=== PATIENT | female | born 1945 | race African-American/Black ===

== ENCOUNTER → 2018-07-03 | Outpatient (CLI) | payer MEDICARE, OTHER ==
--- NOTE | 2018-07-03 12:11 | KCIC ---
MRI right shoulder without contrast dated 07/03/2018 Indication: Shoulder pain limited range of motion .. Comparison: No comparison is available. Technique: Routine multiplanar multisequence imaging performed. . Findings: Study is limited due to motion artifact. There is a large full-thickness tear of the rotator cuff involving the supraspinatus and infraspinatus tendons. The cuff defect measures 2.9 cm transverse and 2.6 in meters in AP dimensions. The torn portion of the cuff is retracted to the level of the joint. There are a few inferior infraspinatus fibers that remain intact. There also may be a few anterior supraspinatus fibers that remain intact. There is thickening and abnormal signal of the subscapularis with probable full-thickness tear of the upper margin. Moderate hypertrophic change at the AC joint. Mild undersurface spurring. Acromion type I morphology. No significant subacromial subdeltoid bursal fluid collection. Long head biceps tendon is not identified and may be ruptured at the biceps anchor or subluxed medially into the joint. There is moderate to severe hypertrophic change of the glenohumeral joint with thinning and surface irregularity of the articular cartilage throughout. Probable full-thickness cartilage loss of the central glenoid. The glenoid labrum is blunted morphology consistent with chronic tearing. Small glenohumeral joint effusion. No definite loose body. Suprascapular and spinoglenoid notches are clear. No significant muscle edema. There is mild atrophy and volume loss of the rotator cuff musculature. IMPRESSION: 1. Rotator cuff tendinopathy with large full-thickness tear of the rotator cuff. The torn portion of the cuff is retracted to the level the joint. 2. Nonvisualization of the long head biceps tendon which could be ruptured at the biceps anchor or subluxed medially into the joint. 3. Moderate AC joint arthropathy. 4. 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 There is extensive degenerative tearing of the glenoid labrum. Electronically signed by: Arnold Amos MD (07/03/2018 12:07 PM) [email or web address]
--- NOTE | 2018-07-03 12:38 | KCIC ---
MRI Lumbar Spine without contrast History: Low back pain, radiculopathy, weakness Technique: Multiplanar, multi sequential noncontrast MR imaging was performed of the lumbar spine. Contrast: None Comparison: None Findings: Most inferior fully formed intervertebral disc space is considered L5-S1 for this report. Lumbar vertebral body stature is maintained. There is minimal grade 1 anterior spondylolisthesis L4-5 and L5-S1. Conus terminates at the superior aspect of L1. There is increased T1 and T2 signal as well as STIR signal in the L5-S1 intervertebral disc space, probably a component of calcification in combination with mild fluid/edema. There is no edema of the adjacent endplates. There is some edema of the right L4 pedicle and facet articulation, also minimally of the left L5 facet articulation. There is mild to moderate narrowing of the L5-S1 intervertebral disc space greater anteriorly, mild degenerative disc disease L2-3 through L4-5. There is nonspecific heterogeneity of the visualized uterus, barely included. T12-L1: This level was not included on the axial images. There is buckling of the ligamentum flavum on the right as well as facet degenerative change, contributes to mild posterior narrowing of the right neural foramen. L1-L2: Spinal canal and neural foramina are adequate. There is mild facet hypertrophic change. L2-L3: There is mild buckling of the ligamentum flavum and mild to moderate facet degenerative change. There is disc osteophyte complex and bulge. There is jeen-bj-wwtbqida narrowing of the spinal canal, lateral recess stenosis bilaterally. There is mild to moderate left and mild right neural foramina compromise. L3-L4: There is mild to moderate buckling of the ligamentum flavum and facet degenerative change. There is fluid in the facet articulations bilaterally. There is mild narrowing of the right lateral recess. There is mild to moderate right and mild left neural foramina compromise, disc osteophyte complex and bulge near the undersurface of the exiting right L3 nerve root without significant impingement. L4-L5: There is mild buckling of the ligamentum flavum and facet degenerative change. There is mild narrowing of the far left lateral recess. There is uyzh-yz-mgkcoows narrowing of the left neural foramen, disc osteophyte complex near undersurface exiting left L4 nerve root greater in the distal neural foramen and proximal extraforaminal region without displacement. Right neural foramen is overall adequate. L5-S1: Spinal canal is adequate. Neural foramina are adequate. Disc osteophyte complex is near the extraforaminal left L5 nerve root. Impression: 1. Most inferior fully formed intervertebral disc space is considered L5-S1. There is grade 1 anterior spondylolisthesis at L4-5 and L5-S1, multilevel facet degenerative change. Edema of the right L4 pedicle and facet articulation and also of the left L5 facet articulation is more likely reactive/degenerative in etiology . 2. There is yjxm-of-qelqzwdj spinal stenosis L2-3, mild right lateral recess stenosis L3-4 and mild left lateral recess stenosis at L4-5. 3. There is mild to moderate neural foramina compromise as stated greatest on the left at L4-5 and L2-3 and on the right at L3-4. 4. There is mild to moderate degenerative disc disease L5-S1 at which is likely component of interbody calcification and mild nonspecific edema, mild degenerative disc disease at more superior levels. 5. There is nonspecific heterogeneity of the visualized uterus, barely included. Electronically signed by: Nasim Chappell MD (07/03/2018 12:35 PM) [id number]
== END | disposition home or self-care (01) ==
LOC: KCIC MRI 09:59
PROVIDERS: ATTEND Physician Assistant
DX: M75.121 Complete rotator cuff tear or rupture of right shoulder, not specified as traumatic (principal); M51.16 Intervertebral disc disorders with radiculopathy, lumbar region; M19.011 Primary osteoarthritis, right shoulder; M94.211 Chondromalacia, right shoulder; M48.061 Spinal stenosis, lumbar region without neurogenic claudication; M43.16 Spondylolisthesis, lumbar region; M85.88 Other specified disorders of bone density and structure, other site
CPT/HCPCS: 72148; 73221

== ENCOUNTER → 2018-07-23 | Outpatient (CLI) | payer MEDICARE, OTHER ==
--- NOTE | 2018-07-23 14:05 | KCIC ---
MRI left shoulder without contrast dated 07/23/2018 12:30 PM Indication: Left shoulder pain no known injury. Pain. Comparison: No comparison is available. Technique: Routine multiplanar multisequence imaging performed. . Findings: Study is limited due to motion artifact. There is increased signal throughout the supraspinatus and infraspinous portions of the repaired cuff. There is a large full-thickness tear involving the supraspinatus and infraspinatus footplate measuring approximately 2.8 cm AP dimension and 2.8 cm transverse. Torn portion of the cuff is retracted to about the 12:00 position. There is intermediate T2 signal throughout the subscapularis which is otherwise intact. Mild hypertrophic change of the AC joint. Mild undersurface spurring of the acromium. Acromion type II morphology. Small amount of subacromial/subdeltoid bursal fluid. Increased signal within the substance of the long head biceps tendon proximally. Extra articular portion courses within the bicipital groove. Biceps anchor intact. Mild hypertrophic change of the glenohumeral joint with small marginal osteophytes. Thinning and surface irregularity of the articular cartilage. No full-thickness cartilage defect. There is blunted morphology of the posterior labrum. Suprascapular and spinoglenoid notches are clear. No significant muscle edema or muscle atrophy. IMPRESSION: 1. Rotator cuff tendinopathy with large full-thickness tear involving the supraspinatus-infraspinatus footplate. The torn portion of the cuff is retracted to the 12:00 position. 2. Moderate AC joint arthropathy with undersurface spurring. Small subacromial/subdeltoid bursal effusion. 3. Mild biceps tendinosis. 4. Mild degenerative arthrosis and chondral malacia the glenohumeral joint. There is degenerative tearing of the posterior labrum. Electronically signed by: Arnold Amos MD (07/23/2018 2:02 PM) [email or web address]
== END | disposition home or self-care (01) ==
LOC: KCIC MRI 11:51
PROVIDERS: ATTEND Physician Assistant
DX: S43.492A Other sprain of left shoulder joint, initial encounter (principal); M19.012 Primary osteoarthritis, left shoulder; X58.XXXA Exposure to other specified factors, initial encounter; Y93.89 Activity, other specified; Y92.89 Other specified places as the place of occurrence of the external cause; Y99.8 Other external cause status
CPT/HCPCS: 73221

== ENCOUNTER 2019-08-19 10:16 | Emergency (ER) | payer MEDICARE, OTHER ==
[~2019-08-19] VITALS: Ht 165.1 cm; Wt 116.1 kg
[2019-08-19 10:50] VITALS: BP 184/78
[2019-08-19] MEDS ORDERED: ORPHENADRINE CITRATE 60 MG/2 ML VIAL. IM ONE (11:00)
[2019-08-19] MEDS ORDERED: DEXAMETHASONE SOD PHOS 20 MG/5 ML VIAL. PO ONE (11:00)
[2019-08-19] MEDS ORDERED: CYCL10TA2 PO (12:00)
--- NOTE | 2019-08-19 12:00 | PHYS DOC ---
Past Medical History Past Medical History: Arthritis, Diabetes-Type II, Hypertension, Renal Disease Additional Past Medical Histor: GOUT, DISC NARROWING Past Surgical History: No Surgical History Alcohol Use: None Drug Use: None Adult General Chief Complaint Chief Complaint: [facility] PA[facility] HPI Patient is a 74 year old AA female who presents to the emergency department with complaints of left low back pain that shoots into her left buttock and sometimes goes over to the right low back for the last 2 days. She denies any history of any trauma or recent fall. Patient states that she has some narrowing of her spine but she is not sure what the diagnosis is. She denies any numbness, tingling, or weakness of her lower extremities. She also denies any loss of bowel or bladder control, saddle anesthesia, increased urination, dysuria, hematuria, or difficulty voiding. Patient currently rates her pain a 10 out of 10 on pain scale, there are no alleviating factors, the pain is increased with movement. She denies any fever, chest pain, palpitations, recent cough, nausea, vomiting, diarrhea, abdominal pain, or chest pain. All other ROS is neg unless otherwise noted in HPI. Review of Systems Review of Systems See Above Current Medications Current Medications Current Medications Medications (Trade) Dose Ordered Sig/Benjamín Start Time Stop Time Status Last Admin Dose Admin Dexamethasone Sodium Phosphate (Decadron) 10 mg 1X ONCE 08/19/19 11:00 08/19/19 11:16 DC 08/19/19 11:47 10 MG Orphenadrine Citrate (Norflex) 60 mg 1X ONCE 08/19/19 11:00 08/19/19 11:16 DC 08/19/19 11:47 60 MG Allergies Allergies Allergies Coded Allergies Type Severity Reaction Last Updated Verified Sulfa (Sulfonamide Antibiotics) Allergy Intermediate 08/19/19 Yes Physical Exam Physical Exam See Above Constitutional: Well developed, well nourished, no acute distress, non-toxic appearance. [] HENT: Normocephalic, atraumatic, bilateral external ears normal, oropharynx moist, no oral exudates, nose normal. [] Eyes: PERRLA, EOMI, conjunctiva normal, no discharge. [] Neck: Normal range of motion, no tenderness, no stridor. [] Cardiovascular:Heart rate regular rhythm, 4/5 murmur noted S1 ans S2 Lungs & Thorax: Bilateral breath sounds clear to auscultation, respirations even and unlabored [] Skin: Warm, dry, no erythema, no rash. [] Back: No bony tenderness, no CVA tenderness; left lumbar paraspinal TTP, increased pain with straight leg lift of left leg Extremities: No cyanosis, ROM intact Neurologic: Alert and oriented X 3, no focal deficits noted. [] Psychologic: Affect normal, judgement normal, mood normal. [] Current Patient Data Vital Signs Vital Signs Date Time Temp Pulse Resp B/P (MAP) Pulse Ox O2 Delivery O2 Flow Rate FiO2 08/19/19 10:50 98.0 62 20 184/78 (113) 95 Room Air 98.0 EKG EKG [] Radiology/Procedures Radiology/Procedures [] Course & Med Decision Making Course & Med Decision Making Pertinent Labs and Imaging studies reviewed. (See chart for details) Pt is a 74-year-old female who presented to the emergency room with complaints of low back pain for the last 2 days. Patient states that the pain is in the left low back and radiates to her left buttock and also sometimes to the right low back with movement. She rated the pain is 10 out of 10 on pain scale, she denied any recent injury or fall. Patient did report a history of narrowing of her spine but was unsure of what the actual diagnosis was. She was given 60 mg of Norflex and 10 mg of Decadron in the emergency department. Prescription written for Flexeril, activity as tolerated. Patient instructed to follow-up with her primary care doctor in the next 1-2 days. Return to the ER symptoms w orsen. Patient verbalized an understanding of home care, medications, follow-up, and return to ED instructions and was in agreement with the plan of care. [] Dragon Disclaimer Dragon Disclaimer This electronic medical record was generated, in whole or in part, using a voice recognition dictation system. Departure Departure Impression: Primary Impression: Low back pain Disposition: 01 HOME, SELF-CARE Condition: STABLE Referrals: SHIRLEY KAMARA MD (PCP) Patient Instructions: Back Pain, Adult, [id number]-[id number], Sciatica, Xebj-li-[id number] Additional Instructions: Fill the prescription(s) and use as directed. Apply heat or ice for to sore areas as needed for comfort. Activity as tolerated. Follow up with your primary care doctor this week if symptoms persist, return to the ER if symptoms worsen. Scripts Cyclobenzaprine Hcl (CYCLOBENZAPRINE HCL) 10 Mg Tablet 1 TAB PO TID PRN for PAIN for 10 Days, #30 TAB 0 Refills Prov: SADIA HUTCHISON APRN 08/19/19 Problem Qualifiers Primary Impression: Low back pain Chronicity: acute Back pain laterality: left Sciatica presence: with sciatica Sciatica laterality: sciatica of left side Qualified Codes: M54.42 - Lumbago with sciatica, left side SADIA HUTCHISON APRN Aug 19, 2019 12:00
== END 2019-08-19 12:09 | disposition home or self-care (01) ==
LOC: ER 10:16
DX: M54.42 Lumbago with sciatica, left side (principal); E11.9 Type 2 diabetes mellitus without complications; I10 Essential (primary) hypertension; M10.9 Gout, unspecified; Z88.2 Allergy status to sulfonamides
CPT/HCPCS: 96372; 99283; J1100; J2360

== ENCOUNTER → 2019-09-11 | Outpatient (CLI) | payer MEDICARE, OTHER ==
[2019-08-19 10:50] VITALS: BP 184/78
[~2019-09-11] MED LIST: CYCL10TA2 PO
--- NOTE | 2019-09-11 12:58 | KCIC ---
EXAMINATION: Magnetic resonance imaging (MRI) of the lumbar spine without contrast 09/11/2019 11:00 AM HISTORY: Low back pain with radiculopathy. TECHNIQUE: Multiplanar multi-weighted MRI of the lumbar spine was performed without intravenous contrast using the standard lumbar spine protocol. Contrast information: None administered. COMPARISON: MRI lumbar spine 07/03/2018 FINDINGS: There is minimal anterolisthesis of L2 on L3, L3 on L4 and L4-L5. Calcified disc noted at L5-S1. Modic type II endplate degenerative changes are identified anteriorly at L5-S1. Modic type I endplate degenerative changes are identified anteriorly at L2-L3 and L3-L4. There is mild disc height loss at L2-L3 with disc desiccation. Disc desiccation is noted at all levels of lumbar spine. Conus medullaris terminates at L1. Distal spinal cord signal intensity is normal in all sequences. Abdominal aorta is normal in caliber. No suspicious retroperitoneal abnormality is identified. Visualized portions of the sacrum appear intact. There is extensive facet edema involving the left facet joint at L4-L5 with fluid within the facet joints. Minimal edema is noted to the lesser extent at L3-L4. L2-L3: There is moderate circumferential disc bulge. Right foraminal disc protrusion is noted. Moderate facet arthropathy is identified. There is moderate to severe bilateral neuroforaminal stenosis. Moderate spinal canal stenosis with right lateral recess stenosis. L3-L4: There is a disc bulge with right foraminal disc protrusion. Moderate facet arthropathy with ligamentum flavum infolding. Moderate to severe right and moderate left neuroforaminal stenosis. Mild spinal canal stenosis. L4-L5: There is moderate disc bulge. There is severe left and moderate right facet arthropathy with ligamentum flavum infolding. Severe left and mild right neuroforaminal stenosis. Mild spinal canal stenosis. L5-S1: Mild disc bulge. Moderate facet arthropathy. No neuroforaminal or spinal canal stenosis. IMPRESSION: Mild to moderate degenerative changes of the lumbar spine, as described in detail above. Electronically signed by: Zara Moulton MD (09/11/2019 12:55 PM) [id number]
== END | disposition home or self-care (01) ==
LOC: KCIC MRI 10:54
PROVIDERS: ATTEND Family Medicine
DX: M51.17 Intervertebral disc disorders with radiculopathy, lumbosacral region (principal); M48.061 Spinal stenosis, lumbar region without neurogenic claudication; M47.26 Other spondylosis with radiculopathy, lumbar region; M12.88 Other specific arthropathies, not elsewhere classified, other specified site; Z90.710 Acquired absence of both cervix and uterus
CPT/HCPCS: 72148